=== PATIENT | male | born 2000 | race Caucasian/White ===

== ENCOUNTER 2019-10-17 10:33 | Emergency (ER) | payer OTHER, SELFPAY ==
[2019-10-17 10:44] VITALS: BP 140/80; PULSE 71; RESP 20; TEMP 36.4; O2SAT 99
--- NOTE | 2019-10-17 11:17 | ED.URI ---
HPI - URI/Sore Throat General Chief Complaint: Upper Respiratory Infection Stated Complaint: cough/sore throat Time Seen by Provider: 10/17/19 11:23 History of Present Illness HPI Narrative: A 19 y/o male, who is a nonsmoker, presents to the with a dry cough and sore throat for the past 5 days. He states that his dad, who is here to be seen with him had recently traveled to [place] for telecom work and returned home 7 days ago. Patient also notes that he preceded dad's symptoms, and his younger brother and mother had flu B at the end of September. He denies taking anything for his symptoms and any fevers, ear ache, wheezing, SOB, and any other medical complaints at this time. Patient advised that if he desires unavailable, higher testing to call or [employer], or [facility] through [phone] MD elicited complaint: cough and sore throat Onset (ago): day(s) (5) Context: sick contacts Associated symptoms: denies other symptoms Treatments prior to arrival: none Related Data Allergies Allergy/AdvReac Type Severity Reaction Status Date / Time clarithromycin Allergy Unknown Rash Verified 10/17/19 10:52 Review of Systems Review of Systems: Narrative: General/Constitutional: No weight loss,fever Eyes: N0: Redness,discharge Ears/Nose/Throat: No: Epistaxis,ear discharge, or ear ache. Reports a sore throat. Respiratory: Denies: Hemoptysis, wheezes, or SOB. Reports a dry cough. Gastrointestinal: No Vomiting, Bleeding-rectal Skin: No Lumps, eruption Neurologic: No Focal Weakness,Sz Hematologic: Denies: Petechiae/Purpura Psychiatric: No: Suicida ideationl All Other Systems: Reviewed and Negative PMFSH Past Medical History Medical History Medical history unknown Surgical History Surgical History Bone marrow replaced by transplant History of placement of ear tubes Surgical history unknown Social History Social History (Updated 10/17/19 @ 11:47 by Adrián Canela) Smoking status: Never smoker Exam Narrative: Exam Narrative: General Appearance: Well appearing, Well nourished EYE: PERRLA, Conjunctiva clear Ears: Auditory canal normal, TM normal Nose: Rhinorrhea, Mucousal erythema Mouth/Throat: MM moist, Uvula midline, Pharyngeal erythema Neck: Supple, No adenopathy Respiratory: No respiratory distress, Breath sounds equal, Clear to auscultation Cardiovascular: RRR, No JVD Musculoskeletal: Non tender, Normal strength Skin: Warm, Dry Neurological: A&O x3, CN II-XII intact Psychiatric: Normal mood, Normal affect Course Vital Signs Vital signs: Vital Signs Temperature 97.6 F 10/17/19 10:44 Pulse Rate 71 10/17/19 10:44 Respiratory Rate 20 10/17/19 10:44 Blood Pressure 140/80 10/17/19 10:44 Pulse Oximetry 99 10/17/19 10:44 Temperature 97.6 F 10/17/19 10:44 Pulse Rate 71 10/17/19 10:44 Respiratory Rate 20 10/17/19 10:44 Blood Pressure 140/80 10/17/19 10:44 Pulse Oximetry 99 10/17/19 10:44 MDM - URI/Sore Throat Lab Data Labs: Influenza A Screen Negative Reference Range: Negative Influenza B Screen Negative Reference Range: Negative Discharge Plan Discharge Clinical Impression: Influenza-like illness Condition: Stable Instructions: Influenza (ED) Prescriptions: New oseltamivir [Tamiflu] 75 mg capsule 75 mg PO Q12H 5 Days Qty: 10 RF: 0 benzonatate [Tessalon Perles] 100 mg capsule 100 mg PO TID Qty: 20 RF: 1 codeine-guaifenesin 10-100 mg/5 mL liquid 7.5 ml PO Q6H PRN (Reason: cough) Qty: 118 RF: 0 cefuroxime axetil 500 mg tablet 500 mg PO Q12H Qty: 14 RF: 0 Follow-up/Referrals: Andrea Peter MD [Primary Care Provider] - Stand Alone Forms: Work/School Release IP Discharge Date/Time: 10/17/19 12:03
== END 2019-10-17 12:03 | disposition home or self-care (01) ==
PROVIDERS: Emergency Provider Emergency Medicine; PCP Family Medicine
DX: R05 Cough (principal); J02.9 Acute pharyngitis, unspecified; Z94.81 Bone marrow transplant status
CPT/HCPCS: 87804; 99213; G0463